=== PATIENT | female | born 1960 | race Caucasian/White ===

== ENCOUNTER 2017-04-04 11:09 | Emergency (ER) | payer OTHER ==
[2017-04-04 11:14] VITALS: BP 140/62; PULSE 82; TEMP 98.2; BMI 44.4
--- NOTE | 2017-04-04 11:35 | PDOC ---
History of Present Illness <Miguelangel Castro - Last Filed: 04/04/17 16:06> - General History Source: Patient Exam Limitations: No Limitations - History of Present Illness Initial Comments: 04/04/17 11:48 The patient is a 56-year-old female, with a significant past medical history of diabetes, HTN, hyperlipidemia, and thyroid disease, who presents to the the ED with left neck swelling and left arm swelling/heaviness that began yesterday. Pt went to see her PCP this morning, Dr. Vicente. She was given a toradol shot but with no relief of her symptoms. Pt states that she is unable to turn her neck to the left side due to pain. She denies any recent trauma to her left side. She reports that her left finger tips feel cold. She denies any numbness or tingling. Pt states that she feels pressure and heaviness in her left arm. She is only able to lift her arm usp due to pain. She states that her symptoms are exacerbated with movement. The patient denies any fever or chills. She denies any chest pain or shortness of breath. PCP: Dr. Vicente <Savannah Rowe - Last Filed: 04/04/17 16:43> - General Chief Complaint: Edema Stated Complaint: PAIN Time Seen by Provider: 04/04/17 11:30 Past History - Past Medical History Cardiac Disorders: (?ANGINA) Diabetes: Yes HTN: Yes Hypercholesterolemia: Yes Thyroid Disease: Yes - Psycho/Social/Smoking Cessation Hx Anxiety: No Suicidal Ideation: No Smoking History: Never smoked Hx Alcohol Use: Yes (socially) Drug/Substance Use Hx: No Substance Use Type: Alcohol Hx Substance Use Treatment: No <Miguelangel Castro - Last Filed: 04/04/17 16:06> <Savannah Rowe - Last Filed: 04/04/17 16:43> - Past Medical History Allergies/Adverse Reactions: Allergies Allergy/AdvReac Type Severity Reaction Status Date / Time No Known Drug Allergies Allergy Verified 04/04/17 11:11 Home Medications: Ambulatory Orders Lisinopril [Prinivil -] 5 mg PO DAILY 12/03/13 Simvastatin [Zocor] 40 mg PO DAILY 12/03/13 Sitagliptin Phosphate [Januvia] 100 mg PO DAILY 03/29/16 Folic Acid 1 mg PO DAILY 04/04/17 Metformin HCl [Metformin HCl ER] 1,000 mg PO BID 04/04/17 Prednisone [Deltasone -] 20 mg PO BID #10 tablet 04/04/17 Ranitidine [Zantac -] 150 mg PO ONCE PRN 04/04/17 Review of Systems - Review of Systems Able to Perform ROS?: Yes Comments:: 04/04/17 11:49 GENERAL/CONSTITUTIONAL: No fever or chills. No weakness. HEAD, EYES, EARS, NOSE AND THROAT: No change in vision. No ear pain or discharge. No sore throat. +left neck swelling CARDIOVASCULAR: No chest pain or shortness of breath. RESPIRATORY: No cough, wheezing, or hemoptysis. SKIN: No rash GASTROINTESTINAL: No nausea, vomiting, diarrhea or constipation. GENITOURINARY: No dysuria, frequency, or change in urination. MUSCULOSKELETAL: No joint or muscle swelling or pain. No neck or back pain. EXTREMITIES: +left arm swelling and heaviness. NEUROLOGIC: No headache, vertigo, loss of consciousness, or change in strength/ sensation. ENDOCRINE: No increased thirst. No abnormal weight change. HEMATOLOGIC/LYMPHATIC: No anemia, easy bleeding, or history of blood clots. ALLERGIC/IMMUNOLOGIC: No hives or skin allergy. <Savannah Rowe - Last Filed: 04/04/17 16:43> *Physical Exam - Vital Signs Last Vital Signs Temp Pulse Resp BP Pulse Ox 98.2 F 82 18 140/62 98 04/04/17 11:11 04/04/17 11:11 04/04/17 11:11 04/04/17 11:11 04/04/17 11:11 <Miguelangel Castro - Last Filed: 04/04/17 16:06> - Vital Signs Last Vital Signs Temp Pulse Resp BP Pulse Ox 98.2 F 82 18 140/62 98 04/04/17 11:11 04/04/17 11:11 04/04/17 11:11 04/04/17 11:11 04/04/17 11:11 - Physical Exam Comments: 04/04/17 11:53 GENERAL: Awake, alert, and fully oriented, in no acute distress HEAD: No signs of trauma ENT: Auricles normal inspection, hearing grossly normal, nares patent, oropharynx clear EYES: PERRLA, EOMI, sclera anicteric, conjunctiva clear without exudates. Moist mucosa. NECK: Normal ROM, supple, no lymphadenopathy, JVD, or masses LUNGS: Breath sounds equal, clear to auscultation bilaterally. No wheezes, and no crackles HEART: Regular rate and rhythm, normal S1 and S2, no murmurs, rubs or gallops ABDOMEN: Soft, nontender, normoactive bowel sounds. No guarding, no rebound. No masses EXTREMITIES: Normal range of motion, no edema. No clubbing or cyanosis. No cords, erythema, or tenderness NEUROLOGICAL: Cranial nerves II through XII grossly intact. Normal speech, normal gait SKIN: Warm, Dry, normal turgor, no rashes or lesions noted <Savannah Rowe - Last Filed: 04/04/17 16:43> ED Treatment Course - LABORATORY CBC & Chemistry Diagram: 04/04/17 12:07 04/04/17 12:07 <Miguelangel Castro - Last Filed: 04/04/17 16:06> - LABORATORY CBC & Chemistry Diagram: 04/04/17 12:07 04/04/17 12:07 <Savannah Rowe - Last Filed: 04/04/17 16:43> Medical Decision Making - Medical Decision Making 04/04/17 15:50 Dr. Bobby was paged and notified. Case was discussed with Dr. Castro and patient will be discharged home with [address] Bobby will see the patient first thing in the morning. <Savannah Rowe - Last Filed: 04/04/17 16:43> *DC/Admit/Observation/Transfer - Attestations Physician Attestion: 04/04/17 11:34 I, Dr. Miguelangel Castro, attest that this document has been prepared under my direction and personally reviewed by me in its entirety. I further attest, that it accurately reflects all work, treatment, procedures and medical decision -making performed by me. <Miguelangel Castro - Last Filed: 04/04/17 16:06> - Attestations Scribe Attestion: 04/04/17 11:54 Documentation prepared by Savannah Rowe, acting as medical assistant dermatology for Miguelangel Castro MD. <Savannah Rowe - Last Filed: 04/04/17 16:43> Diagnosis at time of Disposition: Swelling of left upper extremity - Discharge Dispostion Disposition: HOME Condition at time of disposition: Good - Prescriptions Prescriptions: Prednisone [Deltasone -] 20 mg PO BID #10 tablet - Referrals Referrals: Lina Vicente MD [Staff Physician] - Bill Bobby [Primary Care Provider] - - Patient Instructions Additional Instructions: Ms Alvarez- I am sorry that you are going through this..... and it is not clear what this is....... all of your tests are normal. Dr. Bobby ask me to start you on the prednisone. Take it twice a day. Return to us if worse or new symptoms. Follow up with your doctor as planned. Best- Dr. Miguelangel Castro
[2017-04-04 12:20] LABS: BASOPHIL 0.6 % (0-2.0); MCH 30.5 pg (25.7-33.7); MCHC 33.8 g/dl (32.0-36.0); MEAN CELL VOLUME 90.2 fl (80-96); MEAN PLT VOLUME 9.7 fl (7.5-11.1); NEUTROPHILS 62.3 % (42.8-82.8); PLATELET COUNT 187 K/MM3 (134-434); RDW 13.5 % (11.6-15.6); WHITE BLOOD COUNT 10.3 K/mm3 (4.0-10.0)
[2017-04-04 12:40] LABS: INR 1.01 (0.82-1.09); PROTHROMBIN TIME (PATIENT) 11.1 SEC (9.98-11.88)
[2017-04-04 12:49] LABS: ALBUMIN 3.5 g/dl (3.4-5.0); ANION GAP 10 (8-16); CO2 30 mmol/L (21-32); CREATININE 0.8 mg/dL (0.55-1.02); GLUCOSE,RANDOM 148 mg/dL (74-106); SGOT/AST 19 U/L (15-37); SGPT/ALT 30 U/L (12-78)
[2017-04-04 12:52] LABS: ALK PHOS 118 U/L (45-117); BILIRUBIN,TOTAL 0.7 mg/dL (0.2-1.0); TOT PROT 6.8 g/dl (6.4-8.2)
[2017-04-04] MEDS ORDERED: OXYCODONE/APAP 5/325MG COMBO TABLET PO ONE (14:38)
[2017-04-04] MEDS ORDERED: ONDANSETRON *ODT* 4 MG TABLET SL ONE (14:38)
[2017-04-04] MEDS ORDERED: OXYCODONE/APAP 5/325MG COMBO TABLET ONE (15:51)
[2017-04-04] MEDS ORDERED: ONDANSETRON *ODT* 4 MG TABLET ONE (15:52)
[2017-04-04] MEDS ORDERED: predniSONE 20 MG TABLET (UD) PO ONE (15:57)
[2017-04-04] MEDS ORDERED: predniSONE 20 MG TABLET (UD) ONE (16:01)
== END 2017-04-04 17:00 | disposition home or self-care (01) ==
LOC: JER 11:09
DX: M79.89 Other specified soft tissue disorders (principal); M54.2 Cervicalgia; I10 Essential (primary) hypertension; E11.9 Type 2 diabetes mellitus without complications; Z79.84 Long term (current) use of oral hypoglycemic drugs; E03.9 Hypothyroidism, unspecified; E78.5 Hyperlipidemia, unspecified
CPT/HCPCS: 36415; 71010-TC; 72125-TC; 80053; 85025; 85379; 85610; 93971; 99282-25